=== PATIENT | male | born 1960 | race Caucasian/White ===

== ENCOUNTER 2018-10-11 14:30 | Emergency (ER) | payer OTHER ==
[~2018-10-11 14:30] MED LIST: SODIUM CHLORIDE 0.9% FLUSH 10 ML SOL IV PRN
[2018-10-11 14:48] LABS: INR 1.06 (0.86-1.12)
[2018-10-11 14:49] VITALS: TEMP 97
[2018-10-11 14:53] LABS: BLOOD UREA NITROGEN 19 mg/dl (7-18); CALCIUM 8.6 mg/dl (8.5-10.1); CARBON DIOXIDE 22.3 mEq/L (21-32); CHLORIDE 104 mMol/L (98-107); CREATININE 1.09 mg/dl (0.80-1.30); GLUCOSE 100 mg/dl (74-106); POTASSIUM 4.9 mMol/L (3.5-5.1); SODIUM 139 mMol/L (136-145); TROP I < 0.017 ng/ml (0.000-0.056)
[2018-10-11 14:56] LABS: HEMATOCRIT 37 % (39-53); HEMOGLOBIN 12.8 gm/dl (13.5-17.7); MEAN CORPUSCULAR HEMOGLOBIN 44.4 pg (27.0-32.0); MEAN CORPUSCULAR HGB CONC 34.2 gm/dl (32.0-36.0)
[2018-10-11 14:58] LABS: LACTIC ACID 2.7 mMol/L (0.0-2.0)
[2018-10-11] MEDS ORDERED: SODIUM CHLORIDE 0.9% 500 ML 500 ML IV ONE (15:08)
[2018-10-11 15:21] LABS: MEAN CORPUSCULAR VOLUME 130 fL (80-100)
[2018-10-11 15:22] LABS: BAND NEUTROPHILS % (MANUAL) 3 %; EOSINOPHILS % (MANUAL) 0 % (0-9); LYMPHOCYTES % (MANUAL) 33 % (10-50); MONOCYTES % (MANUAL) 0 % (0-12); NEUTROPHILS % (MANUAL) 64 % (37-80)
[2018-10-11 15:23] LABS: BASOPHILS % (MANUAL) 0 % (0-3)
[2018-10-11 15:24] LABS: ANISOCYTOSIS MARKED
[2018-10-11 16:08] VITALS: BP 133/78; PULSE 53; RESP 16; O2SAT 94
== END 2018-10-11 16:01 | disposition home or self-care (01) | DRG 880 ==
LOC: ED 14:30
DX: F41.8 Other specified anxiety disorders (principal); F12.90 Cannabis use, unspecified, uncomplicated; R06.02 Shortness of breath
CPT/HCPCS: 71045; 80048; 84484; 85007; 85027; 85378; 85610; 85730; 93005; 96365; 99285; 99291